=== PATIENT | male | born 1955 | race Caucasian/White ===

== ENCOUNTER 2017-01-30 08:24 | Day surgery (SDC) | payer BC ==
[2017-01-29 11:39] VITALS: BMI 24.3
--- NOTE | 2017-01-30 05:59 | HP ---
HISTORY OF PRESENT ILLNESS: Mr. Foster is a very pleasant 61-year-old man, who presents for a second opinion on spinal surgery for severely tight foramen on the right at L5. He has L5 pain that has co me on over the last 2 months and is not relieved with much other than gabapentin. MRI of disk from outside facility reveals disk protrusion and facet arthropathy to the right L5 compressing the exiti ng L5 nerve roots, which matches his pain rather well. He is ready for surgery. PAST MEDICAL HISTORY: Gastroesophageal reflux disease, osteoarthritis, depression, and restless leg syndrome. ALLERGIES: CODEINE. CURRENT MEDICATIONS: Methocarbamol, omeprazole, gabapentin, carbidopa/levodopa, and Aleve. PHYSICAL EXAMINATION: NEUROLOGIC: Patient is alert and oriented x3. Gait is antalgic. ASSESSMENT: Lumbar radicular pain. PLAN: Right L5 foraminotomy. I discussed this with Dr. Johnson as well, who then met with the patien t, reviewed imaging and advocated for right L5 facetectomy and possible diskectomy. He explained to the patient the risks, benefits, and alternatives to the procedure. The patient expressed understa nding and would like to move forward with surgery as discussed. I do believe the patient is mentall y competent and capable of making medical decisions for himself and we will move forward with surger y as planned. Arthur Carrasco PA-C, dictating under Dr. Johnson.
[2017-01-30] MEDS ORDERED: CEFAZOLIN/Water 2 GM/20 ML SYRINGE ONE ×2 (09:46→13:39)
[2017-01-30] MEDS ORDERED: Thrombin 5000 UNITS/5 ML VIAL ONE (09:57)
[2017-01-30] MEDS ORDERED: Bupivacaine PF 0.5% 30 ML VIAL ONE (09:57)
[2017-01-30] MEDS ORDERED: Fentanyl 250 MCG/5 ML VIAL ONE (10:07)
[2017-01-30] MEDS ORDERED: ePHEDrine/0.9% NaCl/PF SYRINGE 50 mg/10 ml ONE (10:23)
[2017-01-30] MEDS ORDERED: Glycopyrrolate 0.2 MG/ML 5 ML SYRINGE ONE (10:23)
[2017-01-30] MEDS ORDERED: Ondansetron HCl/PF 4 MG/2 ML Vial ONE (10:23)
[2017-01-30] MEDS ORDERED: Lidocaine 1% PF 5 ML VIAL ONE (10:23)
[2017-01-30] MEDS ORDERED: Propofol 200 MG/20 ML VIAL ONE (10:23)
[2017-01-30] MEDS ORDERED: Dexamethasone 20 MG/5 ML VIAL ONE (10:23)
[2017-01-30] MEDS ORDERED: Tamsulosin HCl 0.4 MG CAP ONE (12:01)
--- NOTE | 2017-01-30 12:41 | OP ---
DATE OF PROCEDURE: 01/30/2017 SURGEON: Casper Johnson M.D. MANUFACTURING MAINTENANCE TECHNICIAN: Arthur Carrasco PA-C INDICATION: Pain. DIAGNOSIS: Lumbar radiculopathy. PROCEDURES: Right L5 and facetectomy, decompression and foraminotomy. ANESTHESIA: General. TECHNIQUE: The patient was brought into the operating room and placed under general anesthesia. He was flipped from a supine to a prone position on the operating room table. A linear incision was p lanned over the L5 segment. After prepping and draping and after an appropriate operative pause, th e incision was created. Soft tissues were swept right of midline. Self-retaining retractors placed into the wound for optimal exposure. After confirming the appropriate level, high-speed cutting dr ill bit as well as 2, 3 and 4 mm Kerrisons were used to remove the vast majority of the facet joint on the right side over the L5 nerve root. The L5 nerve root was identified and subsequently decompr essed by removing a substantial amount of ligament. The disk space was palpated quite laterally and compressed back toward the central aspect of the nucleus pulposus. In the end, I did not perform a nnulotomy as I felt like the exiting L5 nerve root was very well decompressed. The wound was irriga dc. Hemostasis was maintained throughout. The wound was then closed in anatomic layers and a pres sure dressing was applied. There were no known procedural complications.
--- NOTE | 2017-01-30 13:26 | EKG ---
Test Reason : PREOP Blood Pressure : / mmHG Vent. Rate : 045 BPM Atrial Rate : 045 BPM P-R Int : 178 ms QRS Dur : 102 ms QT Int : 442 ms P-R-T Axes : 074 054 024 degrees QTc Int : 382 ms Marked sinus bradycardia Abnormal ECG When compared with ECG of 04-SEP-2012 15:19, No significant change was found Confirmed by DR. Bladimir MCKEON ([id number]) on 01/30/2017 1:26:31 PM Referred By: DOMINIQUE Confirmed By:DR. Bladimir MCKEON
[2017-01-30] MEDS ORDERED: traMADol HCl 50 MG TAB ONE (14:14)
== END 2017-01-30 14:30 | disposition home or self-care (01) ==
LOC: SDC 08:24
PROVIDERS: ATTEND Neurological Surgery
PROC: 01NB0ZZ Release Lumbar Nerve, Open Approach (ICD-10-PCS; principal; 2017-01-30)
DX: M54.16 Radiculopathy, lumbar region (principal); K21.9 Gastro-esophageal reflux disease without esophagitis; M19.90 Unspecified osteoarthritis, unspecified site; F32.9 Major depressive disorder, single episode, unspecified; G25.81 Restless legs syndrome; Z79.1 Long term (current) use of non-steroidal anti-inflammatories (NSAID); Z79.899 Other long term (current) drug therapy; Z88.5 Allergy status to narcotic agent; Z96.0 Presence of urogenital implants; Z98.890 Other specified postprocedural states
CPT/HCPCS: 76001; 93005; 93010; J0131; J1100; J2001; J2405; J2704; J3010; S0020